=== PATIENT | female | born 1980 ===

== ENCOUNTER 2016-12-29 17:58 | Emergency (ER) | payer MEDICAID ==
--- NOTE | 2017-01-05 21:25 | ER ---
ADMIT: 12/29/2016 RM/LOC: ER [facility] MR#: [id number] [address] [address] [place] [address] Emergency Room Report SEX: F AGE: 36 : 1980 DATE: 12/29/2016 ADDENDUM: A 36-year-old female, slipped in the shower, fell against the side of the tub on her right side of her anterior chest. This happened about 2 hours prior to arrival, and she is complaining of severe pain in her right anterior chest. It is worse with movement, worse with deep breaths. I did do an x-ray, which shows no fracture, ribs appear normal. She is having some splinting, but I hear good breath sounds. There is no ecchymosis or abrasion or crepitus noted on the anterior chest wall. She is diagnosed with chest contusion. She was given Valium and Toradol in the Emergency Department and sent home with a prescription for Ultram. DIAGNOSIS: Rib contusion. Zack Seay MD/ che JOB #: [id number] CC: Zack Seay MD, Attending Physician Jayashree Samson MD, Family Physician
== END 2016-12-29 19:20 | disposition home or self-care (01) ==
LOC: ER 17:58
DX: S20.211A Contusion of right front wall of thorax, initial encounter (principal); E11.9 Type 2 diabetes mellitus without complications; Z79.4 Long term (current) use of insulin; W01.0XXA Fall on same level from slipping, tripping and stumbling without subsequent striking against object, initial encounter

== ENCOUNTER 2017-01-28 12:46 | Emergency (ER) | payer MEDICAID ==
--- NOTE | 2017-02-15 08:17 | ER ---
ADMIT: 01/28/2017 RM/LOC: ER [facility] MR#: [id number] [address] [address] [place] [address] Emergency Room Report SEX: F AGE: 36 : 1980 DATE: 01/28/2017 ADDENDUM: This patient comes into the ER because she feels lightheaded and anxious. She says that she recently broke up with her boyfriend. Just does not feel like her normal self. She has no vomiting or diarrhea. She is nauseated. She does have diabetes and says her blood sugars have been very well lately. No coughs or colds. Appetite is normal. Urinalysis showed positive leukocyte esterase, 653 white cells. I wrote a prescription for Macrobid. We will have her push fluids and follow up with her primary as needed. Please see my T-sheet. ANNA Rivas / Syd Cm MD / azl JOB #: [id number] CC: ySd Cm MD, Attending Physician Jayashree Samson MD, Family Physician
== END 2017-01-28 15:00 | disposition home or self-care (01) ==
LOC: ER 12:46
DX: N39.0 Urinary tract infection, site not specified (principal); E11.9 Type 2 diabetes mellitus without complications; Z79.4 Long term (current) use of insulin; Z98.890 Other specified postprocedural states